=== PATIENT | female | born 1980 | race Caucasian/White ===

== ENCOUNTER 2017-12-22 11:35 | Emergency (ER) | payer MEDICAID, OTHER ==
[2017-12-22 11:35] VITALS: BMI 29.7
[2017-12-22] MEDS ORDERED: Sodium Chloride 0.9% 1,000 ML IV ONE (11:57)
[2017-12-22] MEDS ORDERED: Sodium Chloride 0.9% 1,000 ML ONE (12:05)
[2017-12-22 12:35] LABS: BASO % 0.4 % (0.0-2.0); EOS # 0.1 K/uL (0.0-0.7); EOS % 2.1 % (0.0-4.0); HEMOGLOBIN 12.1 g/dL (11.0-16.0); LYMPH # 2.1 K/uL (1.0-4.3); MEAN CORPUSCULAR HEMOGLOBIN 27.9 pg (27.0-31.0); MEAN CORPUSCULAR HGB CONC 33.5 g/dL (33.0-37.0); MEAN PLATELET VOLUME 10.2 fL (7.2-11.7); MONO # 0.4 K/uL (0.0-0.8); MONO % 8.1 % (0.0-10.0); NEUT # 2.5 K/uL (1.8-7.0); NEUT % 48.4 % (50.0-75.0); RBC 4.33 Mil/uL (3.80-5.20); RED CELL DISTRIBUTION WIDTH 14.5 % (11.5-14.5); WHITE BLOOD COUNT 5.2 K/uL (4.8-10.8)
[2017-12-22 12:39] LABS: MEAN CELL VOLUME 83.1 fL (81.0-99.0)
[2017-12-22 12:44] LABS: INR 1.2; PROTHROMBIN TIME 13.5 SECONDS (9.7-12.2)
[2017-12-22 12:47] LABS: ALB/GLOB RATIO 1.1 (1.0-2.1); ALBUMIN 4.1 g/dL (3.5-5.0); ALT/SGPT 37 U/L (9-52); AST/SGOT 22 U/L (14-36); BLOOD UREA NITROGEN 13 mg/dL (7-17); CALCIUM 9.2 mg/dl (8.6-10.4); GFR NON-AFRICAN AMERICAN > 60
--- NOTE | 2017-12-22 13:49 | US ---
Date of service: 12/22/2017 HISTORY: s/p miscarriage - r/o POC COMPARISON: None available. TECHNIQUE: Real-time transabdominal pelvic ultrasound was performed. In addition a transvaginal pelvic ultrasound was necessary to better depict pelvic anatomy. FINDINGS: UTERUS: Measures 8.5 x 4.1 x 5.3 cm. Anteverted. ENDOMETRIUM: Measures 4 mm in diameter. CERVIX: No cervical abnormality identified. RIGHT OVARY: Measures 2.5 x 2.0 x 2.0 cm. Blood flow is demonstrated. 1.5 cm right ovarian cyst. LEFT OVARY: Measures 2.2 x 1.6 x 2.4 cm. Blood flow is demonstrated. FREE FLUID: No significant free fluid noted. OTHER FINDINGS: None. IMPRESSION: 1.5 cm right ovarian cyst.
[2017-12-22 14:23] VITALS: BP 111/70; PULSE 64; RESP 18; TEMP 97.4; O2SAT 100
--- NOTE | 2017-12-22 14:43 | C.PDOC ---
History Of Present Illness 37 y/o female present to the ED complaining of vaginal bleeding for 17 days. As per patient, she went to get an ultrasound 3 days ago at her [facility] that confirmed no IUP. She reports no changes in PO intake. The patient states she has used 1 pad a day for the past 3 days. She denies any dysuria, chest pain or SOB. Her is 4, her para is 3 and abortus is 1. Time Seen by Provider: 12/22/17 11:56 Chief Complaint (Nursing): Female Genitourinary History Per: Patient History/Exam Limitations: no limitations Onset/Duration Of Symptoms: Days Current Symptoms Are (Timing): Still Present Recent travel outside of the [place]: No Abnormal Vaginal Bleeding: Yes : 4 Para: 3 Miscarriage: 1 Past Medical History Reviewed: Historical Data, Nursing Documentation, Vital Signs Vital Signs: Last Vital Signs Temp 97.4 F L 12/22/17 14:22 Pulse 64 12/22/17 14:22 Resp 18 12/22/17 14:22 BP 111/70 12/22/17 14:22 Pulse Ox 100 12/22/17 15:15 - Medical History PMH: Hypothyroidism Denies: Chronic Kidney Disease Surgical History: [facility]cyst[facility] - [facility] INJECT/INFUSE NEC (08/13/13) Family History: States: Unknown Family Hx - Social History Hx Tobacco Use: No Hx Alcohol Use: No Hx Substance Use: No - Immunization History Hx Tetanus Toxoid Vaccination: No Hx Influenza Vaccination: No Hx Pneumococcal Vaccination: No Review Of Systems Except As Marked, All Systems Reviewed And Found Negative. Constitutional: Negative for: Fever, Chills Cardiovascular: Negative for: Chest Pain Respiratory: Negative for: Shortness of Breath Gastrointestinal: Negative for: Nausea, Vomiting, Abdominal Pain Genitourinary: Positive for: Vaginal Bleeding. Negative for: Dysuria Physical Exam - Physical Exam Appears: Non-toxic, No Acute Distress Skin: Normal Color, Warm, No Rash Head: Atraumatic, Normacephalic Eye(s): bilateral: PERRL, EOMI Ear(s): Bilateral: Normal Oral Mucosa: Moist Neck: Normal ROM, Supple Chest: Symmetrical Cardiovascular: Rhythm Regular, No Murmur Respiratory: Normal Breath Sounds, No Rales, No Rhonchi, No Wheezing Gastrointestinal/Abdominal: Bowel Sounds, No Tenderness, No Distention Pelvic: Vaginal Bleeding Extremity: Normal ROM Extremity: Bilateral: Normal Color And Temperature, Normal ROM Neurological/Psych: Oriented x3, Normal Speech Gait: Steady ED Course And Treatment - Laboratory Results Result Diagrams: 12/22/17 12:27 12/22/17 12:27 O2 Sat by Pulse Oximetry: 100 (RA) Pulse Ox Interpretation: Normal - CT Scan/US Abdomen/ Pelvis Other Rad Studies (CT/US): Read By Radiologist, Radiology Report Reviewed CT/US Interpretation: FINDINGS: UTERUS: Measures 8.5 x 4.1 x 5.3 cm. Anteverted. ENDOMETRIUM: Measures 4 mm in diameter. CERVIX: No cervical abnormality identified. RIGHT OVARY: Measures 2.5 x 2.0 x 2.0 cm. Blood flow is demonstrated. 1.5 cm right ovarian cyst. LEFT OVARY: Measures 2.2 x 1.6 x 2.4 cm. Blood flow is demonstrated. FREE FLUID: No significant free fluid noted. OTHER FINDINGS: None. IMPRESSION: 1.5 cm right ovarian cyst. Medical Decision Making Medical Decision Making: Impression: 37 y/o female with vaginal bleeding for three days and recent miscarriage Plan: -BBK -HCG -CMP -PTT -PT -IV Fluids -Toradol 30 mg IV -OB transvaginal US -Pelvis US Disposition - Disposition Referrals: [facility] Annalise Mclean, [Non-Staff] - Disposition: HOME/ ROUTINE Disposition Time: 13:50 Condition: GOOD Additional Instructions: ANNY CEDENO, thank you for letting us take care of you today. The emergency medical care you received today was directed at your acute symptoms. If you were prescribed any medication, please fill it and take as directed. It may take several days for your symptoms to resolve. Return to the Emergency Department if your symptoms worsen, do not improve, or if you have any other problems. Please contact your doctor or call one of the physicians/clinics you have been referred to that are listed on the Patient Visit Information form that is included in your discharge packet. Bring any paperwork you were given at discharge with you along with any medications you are taking to your follow up visit. Our treatment cannot replace ongoing medical care by a primary care provider outside of the emergency department. Thank you for allowing the [facility] team to be part of your care today. B-HCG : 22 Follow up with your [facility] doctor in 2-3 days for re-evaluation and further management. Prescriptions: Ibuprofen [Motrin] 600 mg PO Q6 PRN #20 tab PRN Reason: Pain, Moderate (4-7) Instructions: Heavy Periods (DC) Forms: [employer] (Togolese) - Clinical Impression Clinical Impression: Complete - PA / [employer] / Resident Statement MD/DO has reviewed & agrees with the documentation as recorded. - Scribe Statement The provider has reviewed the documentation as recorded by the Scribe (Carol Lange) Provider Attestation: All medical record entries made by the Scribe were at my direction and personally dictated by me. I have reviewed the chart and agree that the record accurately reflects my personal performance of the history, physical exam, medical decision making, and the department course for this patient. I have also personally directed, reviewed, and agree with the discharge instructions and disposition.
== END 2017-12-22 14:23 | disposition home or self-care (01) ==
LOC: C.ER 11:35
DX: O03.9 Complete or unspecified spontaneous abortion without complication (principal)
CPT/HCPCS: 76830; 76856; 80053; 84702; 85025; 85610; 85730; 86850; 86900; 96361; 96374; 99285; J1885; J7030